=== PATIENT | male | born 1945 | race Caucasian/White ===

== ENCOUNTER → 2017-09-11 10:05 | Outpatient (CLI) | payer MEDICARE ==
[~2017-09-11 10:05] MED LIST: ASCORBIC ACID500 MG PO; BACTRIM DS TABL1 TAB PO; FLOMAX0.4 MG PO; LEVOTHYROXINE175 MCG PO; METAMUCIL1042 GM PO; PEPCID40 MG PO
[2017-10-02 06:58] VITALS: BMI 24.0
== END | disposition home or self-care (01) ==
LOC: D.NM 10:05
DX: R74.8 Abnormal levels of other serum enzymes (principal)

== ENCOUNTER 2017-10-02 05:40 | Day surgery (SDC) | payer MEDICARE ==
[2017-10-01 16:20] LABS: HEMATOCRIT 42.7 % (42.0-54.0); HEMOGLOBIN 14.9 g/dL (13.5-17.5); MCH 30.5 pg (26.0-34.0); MCHC 34.9 g/dL (31.0-37.0); MCV 87.5 fL (80.0-100.0); MEAN PLATELET VOLUME 9.3 fL (7.4-10.4); RBC 4.88 10x6/uL (4.20-6.10); RDW 12.7 % (11.5-14.5)
[~2017-10-02] VITALS: Ht 172.7 cm; Wt 71.7 kg
--- NOTE | ~2017-10-02 | OP ---
PATIENT NAME: STU BENNETT MEDICAL RECORD: [id number] :43 LOCATION:[facility] ADMISSION DATE: SURGEON: SONIDO BRITTON MD DATE OF OPERATION: 10/02/2017 SURGEON: Sonido Britton MD ANESTHESIA: MAC by Keon Stewart CRNA. PREOPERATIVE DIAGNOSIS: Elevated PSA 12.1. PROCEDURE: Transrectal ultrasound and prostate biopsy. FINDINGS: 32.5 gram prostate. No hypoechoic areas. SPECIMENS: Prostate biopsy cores. ESTIMATED BLOOD LOSS: Minimal. CLINICAL HISTORY: This is a 72-year-old male with an elevated PSA of 12.1. There is no family history of prostate cancer. On rectal examination, he has a moderate sized prostate without any nodules. He comes today to have a prostate biopsy. He is not allergic to any medication. He was given ampicillin and sulbactam 3 grams IV group controller to the OR. DESCRIPTION OF PROCEDURE: The patient was given IV sedation. He was then placed in the dorsal lithotomy position. The transrectal ultrasound probe was introduced and prostate size measurements were obtained. Size is 32.5 grams. We then did sextant biopsies with at least 3 cores from each sextant. Once all the specimens were obtained, we woke the patient up and brought him to the recovery room. I will see him in followup next week to review the pathology results with him. TRANSINT:[id number] Voice Confirmation ID: [id number] DOCUMENT ID: [id number] SONIDO BRITTON MD at 1250 CC: [id number] DICTATION DATE: 10/02/17 0843 BRIM SETTER: 10/02/17 1223 [facility] 10/02/17 [place] [address]
[2017-10-02 06:58] VITALS: BP 145/77; Ht 172.7 cm; Wt 71.7 kg
== END 2017-10-02 09:45 | disposition home or self-care (01) ==
LOC: D.OPS 05:40 → D.PAN 09:00 → D.OPS 09:00 → D.PAN 09:15 → D.OPS 09:45
PROVIDERS: Urology
DX: B40.0 Acute pulmonary blastomycosis (principal); E03.9 Hypothyroidism, unspecified; K21.9 Gastro-esophageal reflux disease without esophagitis; M19.90 Unspecified osteoarthritis, unspecified site; Z01.812 Encounter for preprocedural laboratory examination

== ENCOUNTER → 2017-10-10 07:56 | Outpatient (CLI) | payer MEDICARE ==
[2017-10-02 06:58] VITALS: BMI 24.0
== END | disposition home or self-care (01) ==
LOC: D.CT 07:56
DX: C61 Malignant neoplasm of prostate (principal)

== ENCOUNTER → 2018-10-07 13:34 | Outpatient (CLI) | payer MEDICARE ==
[2017-10-02 06:58] VITALS: BMI 24.0
== END | disposition home or self-care (01) ==
LOC: D.US 13:34
DX: I86.1 Scrotal varices (principal)